=== PATIENT | male | born 2000 | race Caucasian/White ===

== ENCOUNTER 2020-07-21 23:20 | Emergency (ER) | payer BC ==
[~2020-07-21] VITALS: Ht 182.9 cm; Wt 63.5 kg
[2020-07-21] MEDS ORDERED: KETOROLAC TROMETHAMINE INJ 60 MG/2 ML VIAL IM ONE (23:33)
[2020-07-21] MEDS ORDERED: ONDANSETRON 4 MG TAB.RAPDIS ONE (23:33)
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
--- NOTE | 2020-07-21 23:41 | NUR ---
BROUGHT TO CT
[2020-07-22] MEDS ORDERED: KETOROLAC TROMETHAMINE INJ 60 MG/2 ML VIAL IM ONE
[2020-07-22] MEDS ORDERED: ONDANSETRON 4 MG TAB.RAPDIS SL ONE
--- NOTE | 2020-07-22 00:31 | NUR ---
Patient discharged to home in stable condition. Written and verbal after care instructions given. Patient verbalizes understanding of instruction. Pt ambulated with steady gait. Denies pain.
[2020-07-22 00:32] VITALS: BP 122/72
== END 2020-07-22 00:32 | disposition home or self-care (01) ==
LOC: ER 23:22
DX: S16.1XXA Strain of muscle, fascia and tendon at neck level, initial encounter (principal); G43.909 Migraine, unspecified, not intractable, without status migrainosus; V49.49XA Driver injured in collision with other motor vehicles in traffic accident, initial encounter; Y93.89 Activity, other specified; Y92.488 Other paved roadways as the place of occurrence of the external cause; Y99.8 Other external cause status
CPT/HCPCS: 70450; 72125; 96372; 99285; J1885; Q0162